=== PATIENT | male | born 1970 | race Caucasian/White ===

== ENCOUNTER 2018-05-14 09:21 | Emergency (ER) | payer SELFPAY, OTHER ==
[2018-05-14] MEDS: KETOROLAC 30 MG INJ IM (10:38)
== END 2018-05-14 13:26 | disposition home or self-care (01) ==
LOC: FTE 09:21
DX: S22.42XA Multiple fractures of ribs, left side, initial encounter for closed fracture (principal); E11.9 Type 2 diabetes mellitus without complications; W01.190A Fall on same level from slipping, tripping and stumbling with subsequent striking against furniture, initial encounter; Y92.9 Unspecified place or not applicable
CPT/HCPCS: 71045; 71100; 96372; 99284-25